=== PATIENT | male | born 1985 | race Caucasian/White ===

== ENCOUNTER 2024-05-18 19:56 | Inpatient (IN) | payer MEDICAID ==
[~2024-05-18] VITALS: Ht 180.3 cm; Wt 89.0 kg
[2024-05-18] MEDS ORDERED: iohexol 300mg/ml 100ml inj. ONE (20:08)
[2024-05-18] MEDS: normal saline 1000ML IV soln IVB ONE (20:14)
[2024-05-18 20:31] LABS: BASOPHILS % (AUTO) 0.5 % (0-1); EOSINOPHILS % (AUTO) 0.3 % (0-6); HEMATOCRIT 44.6 % (42.0-52.0); HEMOGLOBIN 15.4 g/dl (14.0-17.9); LYMPHOCYTES # (AUTO) 2.2 X10'3 (1.1-4.8); MEAN CORPUSCULAR HEMOGLOBIN 30.2 PG (27.0-31.0); MEAN CORPUSCULAR HGB CONC 34.5 g/dL (33.0-36.5); MEAN CORPUSCULAR VOLUME 87.5 FL (78-98); MEAN PLATELET VOLUME 7.5 FL (7.4-10.4); MONOCYTES # (AUTO) 0.7 X10'3 (0-0.9); MONOCYTES % (AUTO) 6.5 % (2-12); NEUTROPHILS # (AUTO) 7.4 X10'3 (1.8-7.7); NEUTROPHILS % (AUTO) 71.7 % (42-75); PLATELET COUNT 261 X10'3 (140-440); RED BLOOD COUNT 5.09 X10'6 (4.70-6.10); RED CELL DISTRIBUTION WIDTH 14.7 % (11.5-14.5); WHITE BLOOD COUNT 10.3 X10'3 (4.5-11.0)
[2024-05-18 20:48] LABS: ALBUMIN 4.3 G/DL (3.4-5.0); ANION GAP 12 (8-16); BLOOD UREA NITROGEN 17 MG/DL (7-18); BUN/CREATININE RATIO 11.5 (10.0-20.0); CHLORIDE 106 MMOL/L (99-107); CREATININE 1.48 MG/DL (0.60-1.10); ETHANOL < 10 MG/DL (<10); GLUCOSE 110 MG/DL (70-104); SODIUM 139 MMOL/L (135-145); TOTAL CARBON DIOXIDE 21.4 MMOL/L (24-32); eCRCL 70 ML/MIN; eGFR 52 ML/MIN
[2024-05-18 20:56] LABS: ACETAMINOPHEN < 2.0 UG/ML (10-30)
[2024-05-18] MEDS ORDERED: BUPR-94 PO (20:58)
[2024-05-18] MEDS: PEG 3350/Na sulf,bicarb,Cl/KCl oral sol 4 liter bottle PO ONE (21:38)
[2024-05-18] MEDS: charcoal, activated 50 GM/240 ML bottle PO ONE (21:38)
[2024-05-18] MEDS: potassium Cl 40MEQ/1/2NS 520ml 520 ML IV ONE (21:39)
[2024-05-18 21:40] LABS: INR 1.1 INR; PROTHROMBIN TIME 11.3 SECONDS (9.0-12.0)
[2024-05-18 21:55] LABS: MAGNESIUM 1.6 MG/DL (1.5-2.4)
[2024-05-18] MEDS: potassium Cl 20 mEq SR tablet PO ONE (21:57)
[2024-05-18] MEDS: TETanus/Pertussis (Acell)/Diphther VAC/PF (Tdap-Adult) 0.5ml syringe IMVAC ONE (21:58)
[2024-05-18] MEDS: K and/or MAG REPLACEMENT MC SCH (22:45)
[2024-05-18] MEDS ORDERED: potassium Cl 20 mEq SR tablet PO PRN ×2 (22:45)
[2024-05-18] MEDS ORDERED: potassium Cl 40MEQ/1/2NS 520ml 520 ML IV PRN (22:45)
[2024-05-18] MEDS ORDERED: acetaminophen 325mg tablet PO PRN (22:45)
[2024-05-18] MEDS ORDERED: magnesium sulf-water 2g/50mL 50 ML IV PRN ×2 (22:45)
[2024-05-18] MEDS ORDERED: magnesium sulf-water 4G/100mL 100 ML IV PRN ×2 (22:45)
[2024-05-18] MEDS: magnesium sulf-water 4G/100mL 100 ML IV ONE (23:09)
[2024-05-18] MEDS: metoclopramide 5 mg/ml inj IV PRN (23:14)
[2024-05-19 01:29] LABS: URINE AMPHETAMINE SCREEN NEGATIVE (Neg); URINE BARBITUATE SCREEN NEGATIVE (Neg); URINE BENZODIAZEPINES SCREEN NEGATIVE (Neg); URINE CANNABINOID SCREEN NEGATIVE (Neg); URINE COCAINE SCREEN NEGATIVE (Neg); URINE METHADONE SCREEN NEGATIVE (Neg); URINE OPIATE SCREEN NEGATIVE (Neg); URINE PHENCYCLIDINE SCREEN NEGATIVE (Neg)
[2024-05-19 03:12] LABS: ALBUMIN 4.2 G/DL (3.4-5.0); ANION GAP 12 (8-16); BLOOD UREA NITROGEN 16 MG/DL (7-18); BUN/CREATININE RATIO 10.8 (10.0-20.0); CALCIUM 8.5 MG/DL (8.5-10.1); CHLORIDE 105 MMOL/L (99-107); CREATININE 1.48 MG/DL (0.60-1.10); GLUCOSE 231 MG/DL (70-104); MAGNESIUM 3.1 MG/DL (1.5-2.4); POTASSIUM 4.3 MMOL/L (3.5-5.1); SALICYLATE 1.3 MG/DL (4.0-20.0); SODIUM 137 MMOL/L (135-145); TOTAL CARBON DIOXIDE 20.3 MMOL/L (24-32); eCRCL 70 ML/MIN; eGFR 52 ML/MIN
[2024-05-19 03:59] LABS: HEMOGLOBIN 15.6 g/dl (14.0-17.9); MEAN CORPUSCULAR VOLUME 88.7 FL (78-98); RED BLOOD COUNT 5.17 X10'6 (4.70-6.10); RED CELL DISTRIBUTION WIDTH 14.7 % (11.5-14.5)
[2024-05-19 04:03] LABS: BASOPHILS % (AUTO) 0.1 % (0-1); EOSINOPHILS % (AUTO) 0 % (0-6); HEMATOCRIT 45.9 % (42.0-52.0); LYMPHOCYTES # (AUTO) 0.8 X10'3 (1.1-4.8); LYMPHOCYTES % (AUTO) 5.8 % (21-51); MEAN CORPUSCULAR HEMOGLOBIN 30.2 PG (27.0-31.0); MEAN PLATELET VOLUME 7.8 FL (7.4-10.4); MONOCYTES # (AUTO) 0.6 X10'3 (0-0.9); MONOCYTES % (AUTO) 4.2 % (2-12); NEUTROPHILS # (AUTO) 12.9 X10'3 (1.8-7.7); NEUTROPHILS % (AUTO) 89.9 % (42-75); PLATELET COUNT 289 X10'3 (140-440); WHITE BLOOD COUNT 14.4 X10'3 (4.5-11.0)
[2024-05-19] MEDS ORDERED: iohexol 300mg/ml 100ml inj. ONE (08:07)
[2024-05-19] MEDS: LidoCAINE 2% Topical Jelly 11mL syringe (UROJET) TOP ONE (11:09)
[2024-05-19] MEDS: sodium chloride 0.45% 1,000 ML IV ONE (12:08)
[2024-05-19] MEDS: normal saline 1000ml 1,000 ML IV SCH (16:40)
[2024-05-19] MEDS ORDERED: LORazepam 2 mg/ml vial IV PRN (16:40)
[2024-05-19 18:03] VITALS: BP 152/86; PULSE 61; RESP 13; TEMP 98.1; O2SAT 97
[2024-05-19] MEDS: enoxaparin 40mg/0.4ml syringe SQ SCH (19:57)
[2024-05-19 20:00] VITALS: BP 139/86; PULSE 106; RESP 12; RESP 16; TEMP 98.2; O2SAT 96; O2SAT 99
[2024-05-20 06:22] LABS: BASOPHILS % (AUTO) 0.2 % (0-1); EOSINOPHILS % (AUTO) 0.3 % (0-6); HEMATOCRIT 40.9 % (42.0-52.0); LYMPHOCYTES # (AUTO) 1.4 X10'3 (1.1-4.8); LYMPHOCYTES % (AUTO) 10.7 % (21-51); MEAN CORPUSCULAR HEMOGLOBIN 30.4 PG (27.0-31.0); MEAN CORPUSCULAR HGB CONC 34.2 g/dL (33.0-36.5); MEAN CORPUSCULAR VOLUME 88.8 FL (78-98); MEAN PLATELET VOLUME 7.8 FL (7.4-10.4); MONOCYTES % (AUTO) 7.7 % (2-12); NEUTROPHILS # (AUTO) 10.9 X10'3 (1.8-7.7); NEUTROPHILS % (AUTO) 81.1 % (42-75); PLATELET COUNT 276 X10'3 (140-440); RED BLOOD COUNT 4.61 X10'6 (4.70-6.10); RED CELL DISTRIBUTION WIDTH 15.1 % (11.5-14.5); WHITE BLOOD COUNT 13.4 X10'3 (4.5-11.0)
[2024-05-20 06:30] LABS: ALBUMIN 3.9 G/DL (3.4-5.0); ANION GAP 8 (8-16); BLOOD UREA NITROGEN 11 MG/DL (7-18); BUN/CREATININE RATIO 9.2 (10.0-20.0); CALCIUM 8.4 MG/DL (8.5-10.1); CHLORIDE 107 MMOL/L (99-107); CREATININE 1.19 MG/DL (0.60-1.10); GLUCOSE 116 MG/DL (70-104); MAGNESIUM 2.3 MG/DL (1.5-2.4); POTASSIUM 4.1 MMOL/L (3.5-5.1); SODIUM 138 MMOL/L (135-145); TOTAL CARBON DIOXIDE 22.6 MMOL/L (24-32); eCRCL 87 ML/MIN; eGFR 67 ML/MIN
[2024-05-20 06:31] VITALS: BP 133/88; PULSE 97; RESP 18; TEMP 97.9; O2SAT 94
[2024-05-20 08:00] VITALS: RESP 15; O2SAT 98
[2024-05-20 11:00] VITALS: BP 131/81; PULSE 98; RESP 16; TEMP 98.7; O2SAT 98
[2024-05-20 15:00] VITALS: BP 139/85; PULSE 108; RESP 21; TEMP 98; O2SAT 98
[2024-05-20 18:00] VITALS: BP 143/85; PULSE 100; RESP 16; TEMP 98.2; O2SAT 98
[2024-05-20 20:00] VITALS: RESP 16; O2SAT 98
[2024-05-21] VITALS: BP 139/75; PULSE 93; RESP 18; O2SAT 96
[2024-05-21 00:58] LABS: ANION GAP 7 (8-16); BLOOD UREA NITROGEN 11 MG/DL (7-18); BUN/CREATININE RATIO 8.5 (10.0-20.0); CALCIUM 8.7 MG/DL (8.5-10.1); CHLORIDE 104 MMOL/L (99-107); CREATININE 1.29 MG/DL (0.60-1.10); GLUCOSE 110 MG/DL (70-104); MAGNESIUM 2.2 MG/DL (1.5-2.4); POTASSIUM 3.9 MMOL/L (3.5-5.1); SODIUM 138 MMOL/L (135-145); TOTAL CARBON DIOXIDE 26.7 MMOL/L (24-32); eCRCL 80 ML/MIN; eGFR 61 ML/MIN
[2024-05-21 07:00] VITALS: BP 122/73; PULSE 99; RESP 18; TEMP 97.5; O2SAT 97
[2024-05-21 11:00] VITALS: BP 132/72; PULSE 115; RESP 14; TEMP 98.6; O2SAT 95
[2024-05-21 11:09] LABS: WHITE BLOOD COUNT 8.6 X10'3 (4.5-11.0)
[2024-05-21 11:10] LABS: BASOPHILS % 1 % (0-2); EOSINOPHILS % (AUTO) 2 % (0-5); HEMOGLOBIN 13.6 G/DL (12.5-16.3); LYMPHOCYTES # (AUTO) 1.1 X10'3 (0.6-4.1); LYMPHOCYTES % 13 % (24-44); MEAN CORPUSCULAR HEMOGLOBIN 30.2 PG (27-31.2); MEAN CORPUSCULAR HGB CONC 33.8 % (32-36); MEAN CORPUSCULAR VOLUME 89.2 FL (81-97); MONOCYTES % 10 % (0-12); NEUTROPHILS # (AUTO) 6.4 X10'3 (>=1.4); PLATELET COUNT 236 X10'3 (130-400); RED BLOOD COUNT 4.49 X10'6 (4.30-5.90); RED CELL DISTRIBUTION WIDTH 15.3 % (11-16); SEGMENTED NEUTROPHILS % 74 % (36-66)
[2024-05-21 11:11] LABS: BASOPHILS # (AUTO) 0.1 X10'3 (0-1); EOSINOPHILS # (AUTO) 0.2 X10'3 (0-0.9); MONOCYTES # (AUTO) 0.9 X10'3 (0-0.9)
[2024-05-21 15:00] VITALS: BP 139/74; PULSE 100; RESP 18; TEMP 98.6; O2SAT 95
[2024-05-21 18:00] VITALS: BP 130/90; PULSE 108; RESP 29; TEMP 98.2; O2SAT 98
[2024-05-21 20:00] VITALS: RESP 29; O2SAT 98
[2024-05-22] VITALS: BP 125/78; PULSE 101; RESP 12; TEMP 97.9; O2SAT 94
[2024-05-22 05:30] LABS: BASOPHILS # (AUTO) 0.1 X10'3 (0-0.2); BASOPHILS % (AUTO) 0.8 % (0-1); EOSINOPHILS # (AUTO) 0.3 X10'3 (0-0.9); EOSINOPHILS % (AUTO) 3.5 % (0-6); HEMATOCRIT 41.5 % (42.0-52.0); LYMPHOCYTES # (AUTO) 1.7 X10'3 (1.1-4.8); LYMPHOCYTES % (AUTO) 20.2 % (21-51); MEAN CORPUSCULAR HGB CONC 33.8 g/dL (33.0-36.5); MEAN CORPUSCULAR VOLUME 88.7 FL (78-98); MEAN PLATELET VOLUME 7.4 FL (7.4-10.4); MONOCYTES % (AUTO) 12.5 % (2-12); NEUTROPHILS # (AUTO) 5.2 X10'3 (1.8-7.7); PLATELET COUNT 239 X10'3 (140-440); RED BLOOD COUNT 4.68 X10'6 (4.70-6.10); RED CELL DISTRIBUTION WIDTH 14.7 % (11.5-14.5); WHITE BLOOD COUNT 8.3 X10'3 (4.5-11.0)
[2024-05-22 06:23] LABS: ALBUMIN 3.7 G/DL (3.4-5.0); ANION GAP 10 (8-16); BLOOD UREA NITROGEN 15 MG/DL (7-18); BUN/CREATININE RATIO 12.2 (10.0-20.0); CALCIUM 8.7 MG/DL (8.5-10.1); CHLORIDE 104 MMOL/L (99-107); CREATININE 1.23 MG/DL (0.60-1.10); GLUCOSE 108 MG/DL (70-104); POTASSIUM 3.7 MMOL/L (3.5-5.1); SODIUM 138 MMOL/L (135-145); TOTAL CARBON DIOXIDE 23.7 MMOL/L (24-32); eCRCL 84 ML/MIN; eGFR 65 ML/MIN
[2024-05-22 07:00] VITALS: BP 125/74; PULSE 92; RESP 18; TEMP 97.5; O2SAT 96
[2024-05-22 10:14] LABS: THYROID STIMULATING HORMONE 6.54 ulU/ml (0.34-4.50)
[2024-05-22 10:16] LABS: BILIRUBIN,URINE NEGATIVE (Neg); CLARITY,URINE CLEAR (Clear); COLOR,URINE YELLOW (Yellow); GLUCOSE, URINE NEGATIVE (Neg); KETONES,URINE TRACE mg/dl (Neg); LEUKOCYTE ESTERASE ,URINE NEGATIVE (Neg); NITRITES, URINE NEGATIVE (Neg); OCCULT BLOOD,URINE NEGATIVE (Neg); PH,URINE 6.5 (4.8-8.0); PROTEIN,URINE NEGATIVE (Neg); UROBILINOGEN,URINE 0.2 E.U/dL (0.2-1.0)
[2024-05-22 10:23] LABS: UA COLLECTION TYPE CLN CATCH MIDSTREAM
[2024-05-22 11:00] VITALS: BP 129/82; PULSE 98; RESP 12; TEMP 97.4; O2SAT 94
[2024-05-22 18:00] VITALS: BP 145/89; PULSE 94; RESP 16; TEMP 97.3; O2SAT 97
== END 2024-05-22 19:40 | DRG 817 ==
LOC: ER 19:57 → ED HOLD 22:55 → EDBEDREQ 05-19 15:30 → PCU 3S 05-19 16:20
PROVIDERS: ADMIT Internal Medicine Critical Care Medicine; ATTEND Internal Medicine Critical Care Medicine
PROC: BW211ZZ Computerized Tomography (CT Scan) of Abdomen and Pelvis using Low Osmolar Contrast (ICD-10-PCS; principal; 2024-05-19)
DX: T43.292A Poisoning by other antidepressants, intentional self-harm, initial encounter (principal); N17.9 Acute kidney failure, unspecified; F32.A Depression, unspecified; S31.111A Laceration without foreign body of abdominal wall, left upper quadrant without penetration into peritoneal cavity, initial encounter; Z20.822 Contact with and (suspected) exposure to COVID-19; X78.8XXA Intentional self-harm by other sharp object, initial encounter; Y93.89 Activity, other specified; Y92.89 Other specified places as the place of occurrence of the external cause; Y99.8 Other external cause status; Z79.899 Other long term (current) drug therapy
CPT/HCPCS: 36415; 71045; 74018; 74176; 74177; 80048; 80305; 80320; 80329; 81003; 83735; 84145; 84443; 85025; 85610; 86885; 86900; 86901; 87081; 87811; 90715; 93005; 99291; 99292; A4340; A6222; A6253; G0378; J1650; J2765; J3475; J3480; J3490; J7030; Q9967